=== PATIENT | male | born 1980 | race Caucasian/White ===

== ENCOUNTER 2017-08-02 15:59 | Emergency (ER) | payer OTHER ==
[2017-08-02 16:45] VITALS: BP 115/71
--- NOTE | 2017-08-02 16:53 | UC ---
Back Pain HPI - HPI Summary HPI Summary: 37 y/o male presents to the urgent care c/o left side lower back pain since 07/31. Pain is sharp with movement, 5/10 with radiation to the left gluteus. No numbness or tingling sensation over the left lower extremity. Pain is worse when sitting for long periods of time. Pt do not recall any trauma or heavy lifting. Pt denies saddle anesthesia, urinary or fecal incontinence, flan pain, SOB, fever, chest pain, abdominal pain, N/V/D. 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 - History of Current Complaint Chief Complaint: UCBackPain Stated Complaint: LEFT SIDE BACK PAIN Time Seen by Provider: 08/02/17 16:51 Hx Obtained From: Patient Onset/Duration: Gradual Onset, Lasting Days - 3 days, Still Present Timing: Constant, Lasting Days - 3 days Severity Initially: Mild Severity Currently: Moderate Pain Intensity: 5 Pain Scale Used: 0-10 Numeric Back Pain: Is Discrete @ - left side of lower back, Radiates To - radiating on left gluteus Character: Sharp, Spasmodic Aggravating Factor(s): Movement, Lifting Alleviating Factor(s): Rest Associated Signs And Symptoms: Positive: Negative. Negative: Swelling, Redness , Bruising, Fever, Weakness, Numbness, Tingling, Abdominal Pain, Flank Pain, Bladder Incontinence, Bowel Incontinence, Weight Loss, Pain with Weight Bearing - Risk Factors AAA Risk Factors: Negative TAD Risk Factors: Negative Cauda Equina Risk Factors: Negative Epidural Abscess Risk Factors: Negative - Allergies/Home Medications Allergies/Adverse Reactions: Allergies Allergy/AdvReac Type Severity Reaction Status Date / Time No Known Allergies Allergy Verified 08/02/17 16:37 PMH/Surg Hx/FS Hx/Imm Hx Previously Healthy: Yes - Pt denies PMHX - Surgical History Surgical History: None - Family History Known Family History: Positive: Diabetes, Respiratory Disease - Asthma - Social History Occupation: Employed Full-time Lives: With Family Alcohol Use: None Substance Use Type: None Smoking Status (MU): Heavy Every Day Tobacco Smoker Type: Cigarettes Amount Used/How Often: 1.5 PPD Length of Time of Smoking/Using Tobacco: 15 yrs Household Exposure Type: Cigarettes Review of Systems Constitutional: Negative Skin: Negative Eyes: Negative ENT: Negative Respiratory: Negative Cardiovascular: Negative Gastrointestinal: Negative Genitourinary: Negative Motor: Negative Neurovascular: Negative Musculoskeletal: Decreased ROM - back, Other: - left side lower back pain Neurological: Negative Psychological: Negative Is Patient Immunocompromised?: No All Other Systems Reviewed And Are Negative: Yes Physical Exam Triage Information Reviewed: Yes Vital Signs: Initial Vital Signs Temp 99.1 F 08/02/17 16:37 Pulse 94 08/02/17 16:37 Resp 18 08/02/17 16:37 BP 115/71 08/02/17 16:37 Pulse Ox 99 08/02/17 16:37 - Additional Comments Vital signs: reviewed General: Patient is a well developed male without any distress comfortably in the stretcher. Skin: [place], warm, dry HEAD AND FACE: No signs of trauma. EYES: PERRLA, EOMI x 2. EARS: Hearing grossly intact. MOUTH: Oropharynx within normal limits. NECK: Supple, trachea is midline, no adenopathy, no JVD. CHEST: Symmetric, no tenderness at palpation LUNGS: CTA bilaterally, no rales, rhonchi or wheezing CVS: RRR, no murmur, rub, or gallop ABDOMEN: soft and Nontender without masses, no guarding or rebound. Bowel sounds are active. No Hepato-splenomegaly. No signs of inguinal hernias. BACK: Patient walked into the urgent care room with symmetric ambulation, No signs of limping, antalgic, able to bear weight. No signs of trauma, no soft tissue. Point tenderness over the left side and paraspinal muscle tenderness at the level of l5-S1 with mild muscle spasm. No masses palpated. No CVAT, no flank ecchymosis . No sacroiliac notch tenderness, No saddle anesthesia. Decrease ROM limited due to pain .Straight Leg Raise: negative. Patellar reflexes: brisk, symmetric Muscle strength lower extremities. Dorsiflexion/ plantar flexion of ankles. Heel/ toe walk. Lower extremities: Femoral, popliteal , posterior tibial, and dorsalis pedis pulses with in normal, Rectal: Patient refused the exam. Neurological: WNL Psychological: WNL Skin: dry and warm Back Pain Course/Dx - Course Course Of Treatment: 37 y/o male presents to the urgent care c/o left side lower back pain since 07/31/2017. Pain is sharp with movement, 5/10 with radiation to the left gluteus. No numbness or tingling sensation over the left lower extremity. Pain is worse when sitting for long periods of time. Pt do not recall any trauma or heavy lifting. Pt denies saddle anesthesia, urinary or fecal incontinence, flan pain, SOB, fever, chest pain, abdominal pain, N/V/D. 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 Pt with musculoskeletal pain and back spasm at left side of L5-S1 on examination. PT Rx Naproxen PO and flexeril PO. Patient was instructed to the f/u [facility] orthopedic in 1 week if symptoms do not improve or worsen. Patient understands and agrees. Patient is able to ambulate freely w/o aid or limp. Plan of care was discussed with the patient and patient understands and agrees. All questions were answered at patient satisfaction. Pt left clinic hemodynamically stable. - Differential Dx/Diagnosis Differential Diagnosis/HQI/PQRI: Cauda Equina Syndrome, Herniated Disc, Strain, Sprain, Other - muscle spasm Provider Diagnoses: 1- Acute lower back pain. 2-left side lower back spasm Discharge - Discharge Plan Condition: Stable Disposition: HOME Prescriptions: Cyclobenzaprine TAB* [Flexeril 10 MG TAB*] 10 mg PO TID PRN #15 tab PRN Reason: Spasms Naproxen [Naproxen 500 mg] 500 mg PO Q8H PRN #30 tab PRN Reason: Pain Patient Education Materials: Acute Low Back Pain (ED), Muscle Spasm (ED) Referrals: [facility] [place] [facility] [Outside] - 1 Week Rolf Pack MD [Medical Doctor] - 1 Week Additional Instructions: 1- Please take Naproxen PO as directed after meals for pain. 2- Take Flexeril PO as directed for muscle spasm. Please do not drive while taking the medication. 3- Wear a back support. Avoid strenuous exercise of heavy lifting. 4- Please follow up with Orthopedic Dr Pack or your PCP in 1 week if not improvement of symptoms, for further management.
== END 2017-08-02 17:31 | disposition home or self-care (01) ==
LOC: UCCORT 15:59
DX: M54.5 Low back pain (principal); M62.830 Muscle spasm of back; Z72.0 Tobacco use
CPT/HCPCS: 81003; 99202; G0463